=== PATIENT | female | born 1965 | race African-American/Black ===

== ENCOUNTER 2018-10-12 19:25 | Emergency (ER) | payer BC, OTHER ==
[~2018-10-12] VITALS: Ht 152.4 cm; Wt 77.6 kg
--- NOTE | 2018-10-12 19:41 | ED Upper Extremity ---
General Chief Complaint: Upper Extremity Stated Complaint: LT WRIST INJ, SWOLLEN, RED History of Present Illness Date Seen by Provider: Oct 12, 2018 Time Seen by Provider: 19:27 This is a 53-year-old female who complains of left wrist pain after a mechanical fall shortly prior to arrival. No weakness numbness or tingling. The pain is constant although mild at rest, worse with movement, nonradiating, sore , moderate severity at worst. Denies any other injuries. Allergies and Home Medications Home Medications Hydrocodone/Acetaminophen 1 Each Tablet, 1 TAB PO Q4-6HR PRN for PAIN-MODERATE TO SEVERE Prescribed by: NASIR ARTIS on 10/12/182012 Patient Home Medication List Home Medication List Reviewed: Yes Review of Systems Constitutional: no symptoms reported EENTM: no symptoms reported Respiratory: no symptoms reported Cardiovascular: no symptoms reported Gastrointestinal: no symptoms reported Genitourinary: no symptoms reported Musculoskeletal: see HPI Skin: no symptoms reported Psychiatric/Neurological: No Symptoms Reported Past Vkwtgyc-Rxiikt-Gtxtqe Hx Patient Social History Recent Foreign Travel: No (N) Contact w/Someone Who Travel: No Physical Exam Vital Signs Vital Signs - First Documented 10/12/18 10/12/18 19:30 20:55 Temp 97.2 Pulse 88 Resp 16 B/P (MAP) 152/91 (111) Pulse Ox 95 O2 Flow Rate 96.00 Capillary Refill : Height, Weight, BMI Height: '" Weight: lbs. oz. kg; BMI Method: General Appearance: no apparent distress HEENT: normal ENT inspection Neck: supple Cardiovascular: normal peripheral pulses, regular rate, rhythm Respiratory: lungs clear Gastrointestinal: non tender, soft Wrist: Yes swelling (there is mild swelling over the dorsal left wrist with some tenderness over the distal radius, there is also a small abrasion less than 1 cm over the palmar aspect of the distal second MCP without tenderness) Neurologic/Tendon: other (radial, median, ulnar nerve function intact) Neurologic/Psychiatric: alert, normal mood/affect, oriented x 3; No abnormal gait Skin: warm/dry Procedures/Interventions Splinting and Joint Reduction : Pre-Proc Neuro Vasc Exam: normal Post-Proc Neuro Vasc Exam: normal Dagoberto wrap: Yes Arm Sling: Large Hand-Made Type: plaster; sugar tong to left forearm Progress/Results/Core Measures Results/Orders My Orders Orders - NASIR ARTIS DO Wrist 2 View Left (10/12/18 19:34) Vital Signs/I&O 10/12/18 10/12/18 19:30 20:55 Temp 97.2 97.9 Pulse 88 84 Resp 16 16 B/P (MAP) 152/91 (111) 148/88 (108) Pulse Ox 95 96 O2 Flow Rate 96.00 Progress Progress Note : Progress Note I did not feel we would be able to significantly improve alignment with closed reduction in ED, indeed pt likely requires surgery as fx may be intraarticular. I applied sugar tong plaster splint and sling. Rx for norco PRN. F/u orthopedics bryanna, return precautions discussed. Departure Impression Primary Impression: Fracture of radius Disposition: HOME, SELF-CARE Condition: Stable Departure-Patient Inst. Referrals: NO,LOCAL PHYSICIAN (PCP) Primary Care Physician KACIE TREVIZO MD Patient Instructions: How to Use a Shoulder Sling, Radius Fracture (DC) Scripts Hydrocodone/Acetaminophen ([place] 5-325 Tablet) 1 Each Tablet 1 TAB PO Q4-6HR PRN for PAIN-MODERATE TO SEVERE MDD 10 for 4 Days, #18 TAB Prov: NASIR ARTIS DO 10/12/18 NASIR ARTIS DO Oct 12, 2018 19:41
--- NOTE | 2018-10-12 19:57 | Diagnostic Imaging Report ---
INDICATION: Fell and tried to catch herself. Left hand pain and wrist pain and swelling. EXAMINATION: Left wrist dated 10/12/2018. FINDINGS: Two views of the wrist demonstrate a fracture of the distal radius with the distal aspect displaced anteriorly on the lateral view. Questionable lucency extends into the adjacent joint space. No other fractures identified. No dislocations. There is diffuse soft tissue swelling. IMPRESSION: 1. Distal radial fracture as described possibly intra-articular. Dictated by: Dictated on workstation # [id number]
[2018-10-12] MEDS ORDERED: HYDR-4226 PO (20:13)
[2018-10-12 20:55] VITALS: BP 148/88
--- OUTSIDE RECORDS SUMMARY | 2018-10-12 21:00 | XMS REPORT ---
Author RICHARD Friedman [facility] eClinicalWorks Address Unknown Phone Unavailable Care Team Providers Care Plant Production Worker Name Role Phone RICHARD CROSS Unavailable Allergies, Adverse Reactions, Alerts Substance Reaction Event Type N.K.D.A. Info Not Available Non Drug Allergy Problems Problem Type Condition Code Onset Dates Condition Status Assessment Urinary frequency R35.0 Active Assessment Urinary urgency R39.15 Active Assessment Dysuria R30.0 Active Assessment Suprapubic pain R10.2 Active Medications Medication Code System Code Instructions Start Date End Date Status Dosage Bactrim DS [facility] [address]-45 800-160 MG Orally 2 times a day Jul 03, 2015 Jul 06, 2015 1 tablet Estradiol [facility] [address]-58 0.05 MG Transdermal 1 patch to skin Procedures Procedure Coding System Code Date URINE CULTURE/COLONY COUNT CPT-4 17364 Jul 03, 2015 Office Visit, New Pt., Level 3 CPT-4 45527 Jul 03, 2015 URINALYSIS, AUTO, W/O SCOPE CPT-4 83874 Jul 03, 2015 Vital Signs Date/Time: Jul 03, 2015 Temperature 97.3 F Weight 144.0 lbs Height 60 in BMI 28.12 Index Blood Pressure Diastolic 74 mmHg Blood Pressure Systolic 118 mmHg Cardiac Monitoring Heart Rate 72 bpm Results No Known Results Summary Purpose eClinicalWorks Submission
--- OUTSIDE RECORDS SUMMARY | 2018-10-12 21:00 | XMS REPORT ---
Author Author CLOTILDE ORTEGA Organization [facility] Address [address] [place] [address] Care Team Providers Care Thermodynamics Teacher Name Role Phone CLOTILDE ORTEGA Unavailable PROBLEMS Type Condition ICD9-CM Code AGO13-CY Code Onset Dates Condition Status SNOMED Code Problem Slow transit constipation K59.01 Active 25437658 ALLERGIES No Information ENCOUNTERS Encounter Location Date Diagnosis [place] [address] [address] Dec, [place] [address] [address] November, [place] [address] [address] November, Alopecia L65.9 [place] [address] [address] November, Alopecia L65.9 ; Slow transit constipation K59.01 and Dry skin L85.3 [place] [address] [address] [place] [id number] [place] [address] Aug, Bronchitis J40 and Rib pain on right side R07.81 [facility] [address] [place] [id number] [place] [phone] Jul, Encounter for drug screening Z02.83 [place] [address] [address] Jul, [place] [address] [address] Jul, Dysuria R30.0 ; Urinary frequency R35.0 ; Urinary urgency R39.15 and Suprapubic pain R10.2 IMMUNIZATIONS No Known Immunizations SOCIAL HISTORY Never Assessed REASON FOR VISIT Requests return call PLAN OF CARE VITAL SIGNS MEDICATIONS Unknown Medications RESULTS No Results PROCEDURES No Known procedures INSTRUCTIONS MEDICATIONS ADMINISTERED No Known Medications MEDICAL (GENERAL) HISTORY Type Description Date Surgical History hysterectomy - total 08/2010 Surgical History section
--- OUTSIDE RECORDS SUMMARY | 2018-10-12 21:00 | XMS REPORT ---
Author Author DEEPALI RODRIGUEZ [facility] Address [address] [place] [address] Care Team Providers Care Knockup Worker Name Role Phone DEEPALI RODRIGUEZ Unavailable PROBLEMS Type Condition ICD9-CM Code AOV91-BE Code Onset Dates Condition Status SNOMED Code Assessment Encounter for drug screening Z02.83 Jul, Active [id number] ALLERGIES Unknown Allergies SOCIAL HISTORY No smoking Hx information available PLAN OF CARE VITAL SIGNS MEDICATIONS Unknown Medications RESULTS No Results PROCEDURES Procedure Date Ordered Related Diagnosis Body Site DRUG SCREEN NON TLC DEVICES Jul 07, 2016 IMMUNIZATIONS No Known Immunizations
--- OUTSIDE RECORDS SUMMARY | 2018-10-12 21:00 | XMS REPORT ---
Author Author CLOTILDE ORTEGA Organization [facility] Address [address] [place] [address] Care Team Providers Care Head Of Marketing Name Role Phone CLOTILDE ORTEGA Unavailable PROBLEMS Type Condition ICD9-CM Code [id number]-ZV Code Onset Dates Condition Status SNOMED Code Problem Slow transit constipation K59.01 Active 53579936 ALLERGIES No Information ENCOUNTERS Encounter Location Date Diagnosis [place] [address] [address] Dec, [place] [address] [address] November, [place] [address] [address] November, Alopecia L65.9 [place] [address] [address] November, Alopecia L65.9 ; Slow transit constipation K59.01 and Dry skin L85.3 [place] [address] [address] [place] [id number] [place] [address] Aug, Bronchitis J40 and Rib pain on right side R07.81 [facility] [address] [place] [id number] [place] [address] Jul, Encounter for drug screening Z02.83 [place] [address] [address] Jul, [place] [address] [address] Jul, Dysuria R30.0 ; Urinary frequency R35.0 ; Urinary urgency R39.15 and Suprapubic pain R10.2 IMMUNIZATIONS No Known Immunizations SOCIAL HISTORY Never Assessed REASON FOR VISIT Requests return call PLAN OF CARE VITAL SIGNS MEDICATIONS Medication Instructions Dosage Frequency Start Date End Date Duration Status Estradiol 0.05 MG Transdermal once weekly 1 patch to skin 28 days Active RESULTS No Results PROCEDURES No Known procedures INSTRUCTIONS MEDICATIONS ADMINISTERED No Known Medications MEDICAL (GENERAL) HISTORY Type Description Date Surgical History hysterectomy - total 08/2010 Surgical History section
--- OUTSIDE RECORDS SUMMARY | 2018-10-12 21:00 | XMS REPORT ---
Author Author CLOTILDE ORTEGA Organization [facility] Address [address] [place] [address] Care Team Providers Care Human Services Case Manager Name Role Phone CLOTILDE ORTEGA Unavailable PROBLEMS Type Condition ICD9-CM Code ZWY16-IR Code Onset Dates Condition Status SNOMED Code Problem Slow transit constipation K59.01 Active 20205768 ALLERGIES No Known Allergies ENCOUNTERS Encounter Location Date Diagnosis [place] [address] [address] Dec, [place] [address] [address] November, [place] [address] [address] November, Alopecia L65.9 [place] [address] [address] November, Alopecia L65.9 ; Slow transit constipation K59.01 and Dry skin L85.3 [place] [address] [address] Aug, Bronchitis J40 and Rib pain on right side R07.81 [facility] [address] [place] [id number] [place] [phone] Jul, Encounter for drug screening Z02.83 [facility] [address] [address] Jul, [place] [address] [address] Jul, Dysuria R30.0 ; Urinary frequency R35.0 ; Urinary urgency R39.15 and Suprapubic pain R10.2 IMMUNIZATIONS No Known Immunizations SOCIAL HISTORY Never Assessed REASON FOR VISIT Establish Care WB-MA, Thyroid concerns PLAN OF CARE VITAL SIGNS Height 60 in 2017-12-20 Weight 163.7 lbs 2017-12-20 Temperature 97.2 degrees Fahrenheit 2017-12-20 Heart Rate 86 bpm 2017-12-20 Respiratory Rate 20 2017-12-20 Oximetry on room air:98 % 2017-12-20 BMI 31.97 kg/m2 2017-12-20 Blood pressure systolic 128 mmHg 2017-12-20 Blood pressure diastolic 84 mmHg 2017-12-20 MEDICATIONS Unknown Medications RESULTS No Results PROCEDURES Procedure Date Ordered Result Body Site COMPREHEN METABOLIC PANEL December 20, 2017 VENIPUNCT, ROUTINE* December 20, 2017 GONADOTROPIN (LH) December 20, 2017 ASSAY THYROID STIM HORMONE December 20, 2017 GONADOTROPIN (FSH) December 20, 2017 COMPLETE CBC W/AUTO DIFF WBC December 20, 2017 INSTRUCTIONS MEDICATIONS ADMINISTERED No Known Medications MEDICAL (GENERAL) HISTORY Type Description Date Surgical History hysterectomy - total 08/2010 Surgical History section
--- OUTSIDE RECORDS SUMMARY | 2018-10-12 21:00 | XMS REPORT ---
Author Author DEEPALI RODRIGUEZ [facility] Address [address] [place] [address] Care Team Providers Care Mill Recorder Name Role Phone DEEPALI RODRIGUEZ Unavailable PROBLEMS Unknown Problems ALLERGIES Unknown Allergies SOCIAL HISTORY No smoking Hx information available PLAN OF CARE VITAL SIGNS MEDICATIONS Unknown Medications RESULTS No Results PROCEDURES No Known procedures IMMUNIZATIONS No Known Immunizations
--- OUTSIDE RECORDS SUMMARY | 2018-10-12 21:00 | XMS REPORT ---
Author Author CLOTILDE ORTEGA Organization [facility] Address [address] [place] [address] Care Team Providers Care Mold Changer Name Role Phone CLOTILDE ORTEGA Unavailable PROBLEMS Type Condition ICD9-CM Code LGM08-UC Code Onset Dates Condition Status SNOMED Code Problem Slow transit constipation K59.01 Active 92616377 ALLERGIES No Information ENCOUNTERS Encounter Location Date Diagnosis [place] [address] [address] Dec, [place] [address] [address] November, [place] [address] [address] November, Alopecia L65.9 [place] [address] [address] November, Alopecia L65.9 ; Slow transit constipation K59.01 and Dry skin L85.3 [place] [address] [address] [place] [id number] [place] [address] Aug, Bronchitis J40 and Rib pain on right side R07.81 [facility] [address] [place] [id number] [place] [phone] Jul, Encounter for drug screening Z02.83 [place] [address] [address] Jul, [place] [address] [address] Jul, Dysuria R30.0 ; Urinary frequency R35.0 ; Urinary urgency R39.15 and Suprapubic pain R10.2 IMMUNIZATIONS No Known Immunizations SOCIAL HISTORY Never Assessed REASON FOR VISIT Refill request PLAN OF CARE VITAL SIGNS MEDICATIONS Medication [...]
--- OUTSIDE RECORDS SUMMARY | 2018-10-12 21:00 | XMS REPORT ---
Author Author MARIBEL LEÓN Organization [facility] Address [address] [place] [address] Care Team Providers Care Appellate Court Judge Name Role Phone MARIBEL LEÓN Unavailable PROBLEMS Type Condition ICD9-CM Code VUF18-ML Code Onset Dates Condition Status SNOMED Code Problem Slow transit constipation K59.01 Active 60213441 ALLERGIES No Known Allergies ENCOUNTERS Encounter Location Date Diagnosis [facility] [address] [address] November, [place] [address] [address] November, Alopecia L65.9 [facility] [address] [address] November, Alopecia L65.9 ; Slow transit constipation K59.01 and Dry skin L85.3 [place] [address] [address] Aug, Bronchitis J40 and Rib pain on right side R07.81 [facility] [address] [address] Jul, Encounter for drug screening Z02.83 [facility] [address] [place] [id number] [place] [address] Jul, [place] [address] [address] Jul, Dysuria R30.0 ; Urinary frequency R35.0 ; Urinary urgency R39.15 and Suprapubic pain R10.2 IMMUNIZATIONS No Known Immunizations SOCIAL HISTORY Never Assessed REASON FOR VISIT rib pain--tcuppettRn, Has had cough/congestion x 2 weeks. Continues with symptoms. Was seen at [facility] urgent care. Was given a steroid shot, antibiotics (still on antibiotics), and inhaler with no improvement. , -Is having right rib pain now due to cough PLAN OF CARE Activity Details Follow Up Discussed establishing care with Eliz Reason: VITAL SIGNS Height 60 in 2017-08-25 Weight 161.8 lbs 2017-08-25 Temperature 99.4 degrees Fahrenheit 2017-08-25 Heart Rate 76 bpm 2017-08-25 Respiratory Rate 20 2017-08-25 Oximetry 98 % 2017-08-25 BMI 31.60 kg/m2 2017-08-25 Blood pressure systolic 148 mmHg 2017-08-25 Blood pressure diastolic 50 mmHg 2017-08-25 MEDICATIONS Medication Instructions Dosage Frequency Start Date End Date Duration Status Naproxen 500 mg Orally every 12 hrs 1 tablet with food or milk as needed 12h Aug, Sep, 30 days Active Azithromycin 250 MG Orally Once a day 2 tablets on the first day, then 1 tablet daily for 4 days 24h Active Albuterol Sulfate HFA 108 (90 Base) MCG/ACT Inhalation every 6 hrs 2 puffs as needed 6h Active Estradiol 0.05 MG 1 patch to skin Not-Taking Tessalon Perles 100 mg Orally Three times a day 1 capsule as needed 8h Aug, Sep, 14 days Active RESULTS No Results PROCEDURES Procedure Date Ordered Result Body Site MEASURE BLOOD OXYGEN LEVEL Aug 25, 2017 INSTRUCTIONS MEDICATIONS ADMINISTERED No Known Medications MEDICAL (GENERAL) HISTORY Type Description Date Surgical History hysterectomy - total 08/2010 Surgical History section
== END 2018-10-12 20:55 | disposition home or self-care (01) ==
LOC: ER FS 19:27
DX: S52.572A Other intraarticular fracture of lower end of left radius, initial encounter for closed fracture (principal); W19.XXXA Unspecified fall, initial encounter
CPT/HCPCS: 29105; 73100

== ENCOUNTER → 2019-03-15 | Outpatient (CLI) | payer BC, OTHER ==
[~2019-03-15] MED LIST: HYDR-4226 PO
--- NOTE | 2019-03-15 16:09 | Diagnostic Imaging Report ---
Indication: Right breast lump. Correlation is made prior exam from 05/20/2018 and 01/11/2016. 2-D and 3-D bilateral diagnostic mammography was performed with CAD. BB marker is placed at the area of palpable abnormality in the upper-outer right breast. Breasts are heterogeneously dense, limiting the sensitivity of mammography. No mass or malignant appearing microtest calcifications are seen. The axillae are unremarkable. Impression: BI-RADS 0 No mammographic features suspicious for malignancy are identified. Even so, directed sonographic interrogation of the area of the palpable abnormality in the upper-outer right breast is recommended and will be performed today. ACR BI-RADS Category 0: Incomplete. (Needs additional imaging evaluation). Result letter will be mailed to the patient. Note: At least 10% of breast cancer is not imaged by mammography. Dictated by: Dictated on workstation # [id number]
--- NOTE | 2019-03-15 19:11 | Diagnostic Imaging Report ---
INDICATION: Palpable lump in right breast. COMPARISON: Correlation is made with diagnostic mammogram earlier the same day. EXAMINATION: Sonographic interrogation in the area of palpable abnormality was performed. FINDINGS: There is an area of heterogeneous increased echogenicity at the 12 o'clock location 5 cm from the nipple, corresponding to the top abnormality. This may represent fatty tissue. No well-formed mass is seen. No abnormal shadowing is detected. IMPRESSION: No discrete mass is seen. There is echogenic tissue at this location which may represent fatty tissue. Continued close clinical and self breast exam is recommended to confirm stability of the palpable abnormality. ACR BI-RADS Category 2: Benign findings. Result letter will be mailed to the patient. Note: At least 10% of breast cancer is not imaged by mammography. Dictated by: Dictated on workstation # [id number]
== END ==
LOC: RAD 13:10
PROVIDERS: ATTEND Obstetrics & Gynecology
DX: N63.10 Unspecified lump in the right breast, unspecified quadrant (principal)
CPT/HCPCS: 77066

== ENCOUNTER → 2020-01-18 | Outpatient (CLI) | payer BC ==
--- NOTE | 2020-01-18 17:14 | Diagnostic Imaging Report ---
INDICATION: Palpable lump right breast. Correlation is made with diagnostic mammogram earlier same day. Sonographic interrogation at the area of lump was performed. There is a simple appearing cyst at the 12:30 location of the right breast, 8 cm from the nipple, measuring 5 mm in diameter. Adjacent to this is an area of shadowing but no discrete mass is seen. No other abnormality is detected. IMPRESSION: BI-RADS Category 0. 1. Simple cyst at the 12:30 location. 2. There is a heterogeneous area of shadowing adjacent to the cyst at the 12:30 location right breast, 8 cm from the nipple. This is indeterminate but does correspond to the region of palpable abnormality. No abnormality mammographically is seen. Further evaluation with MRI would be recommended for further characterization. Dictated by: Dictated on workstation # [id number]
--- NOTE | 2020-01-18 18:56 | Diagnostic Imaging Report ---
INDICATION: Palpable lump in right breast. COMPARISON: Correlation is made with prior mammogram of 03/15/2019 and 05/20/2018. EXAMINATION: 2D and 3D unilateral right diagnostic mammography was performed with CAD. FINDINGS: Right breast remains heterogeneously dense, limiting the sensitivity of mammography. A BB marker was placed at the area of palpable abnormality in the upper outer right breast at mid depth. No discrete mass is identified apart from an intraparenchymal lymph node in the far posterior and outer right breast. No malignant appearing microcalcifications are seen. Right axilla is unremarkable. IMPRESSION: Stable right mammogram with no mammographic features suspicious for malignancy. Even so, directed sonographic interrogation of the area of palpable abnormality is recommended and will be performed today. Dictated by: Dictated on workstation # [id number]
== END ==
LOC: RAD 12:15
PROVIDERS: ATTEND Obstetrics & Gynecology
DX: N60.01 Solitary cyst of right breast (principal)
CPT/HCPCS: 76642; 77065; G0279

== ENCOUNTER → 2020-01-30 | Outpatient (CLI) | payer BC ==
[~2020-01-30] MED LIST changes: +GADOBUTROL 15 MMOL/15 ML (GADAVIST) VIAL IV ONE
[2020-01-30 08:36] LABS: ALBUMIN 4.3 GM/DL (3.2-4.5); CHLORIDE 107 MMOL/L (98-107); POTASSIUM 4.2 MMOL/L (3.6-5.0); SODIUM 143 MMOL/L (135-145)
[2020-01-30 08:37] LABS: CALCIUM 9.4 MG/DL (8.5-10.1)
[2020-01-30 08:38] LABS: GLUCOSE 89 MG/DL (70-105)
[2020-01-30 08:39] LABS: TOTAL PROTEIN 7.6 GM/DL (6.4-8.2)
[2020-01-30 08:40] LABS: CARBON DIOXIDE 27 MMOL/L (21-32)
[2020-01-30 08:41] LABS: BILIRUBIN,TOTAL 0.7 MG/DL (0.1-1.0)
[2020-01-30 08:42] LABS: ALKALINE PHOSPHATASE 109 U/L (40-136); CREATININE SERUM 0.87 MG/DL (0.60-1.30); GFR ESTIMATED > 60
[2020-01-30 08:43] LABS: BUN/CREATININE RATIO 10
[2020-01-30 08:45] LABS: ALANINE AMINOTRANSFERASE 15 U/L (0-55)
--- NOTE | 2020-01-30 18:16 | Diagnostic Imaging Report ---
EXAMINATION: MRI Breast w/ + w/o Contrast Bilateral CLINICAL INDICATION: Problem-solving MRI. Palpable right breast lump. Patient recently had diagnostic mammogram and ultrasound performed for further evaluation of this lump, with irregular finding demonstrated on ultrasound. TECHNIQUE: Utilizing a 1.5 Blanca Siemens magnet, the patient was placed in a prone position with an 8 channel dedicated breast coil utilized. Axial STIR and fat sat T2 precontrasted images and axial T1 with and without fat-sat images were obtained. Post contrast high-resolution dynamic images were also obtained. Pre and post contrasted images were then evaluated with MD2U for evaluation of possible angiogenesis. The patient was injected with 7 mL of Gadavist gadolinium contrast. COMPARISON: Recent diagnostic mammogram and ultrasound performed on 01/18/2020, as well as prior diagnostic mammogram and ultrasound performed on 03/15/2019 and additional prior mammograms performed in 2015 and 2018. FINDINGS: RIGHT BREAST: The breast is composed of heterogeneous fibroglandular tissue. There is marked background parenchymal enhancement. There are scattered cysts throughout the breast, many of which demonstrate peripheral enhancement, compatible with mild inflammatory change in the cyst wall. There is an area of fat necrosis in the superior central breast at 12-1 o'clock far posterior depth. Immediately lateral to this, also between 12 and 1 o'clock, 11 cm from the nipple, there is an irregular mass with spiculated margins which measures approximately 7 x 7 x 8 mm (images [id number] [id number] series 9). This demonstrates predominantly persistent-type enhancement on kinetic analysis. There is no other suspicious mass or non-mass enhancement above background. There is no axillary or internal mammary adenopathy. LEFT BREAST: The breast is composed of heterogeneous fibroglandular tissue. There is moderate to marked background parenchymal enhancement. There are scattered cysts, to a lesser degree than seen in the right breast, many of which demonstrate peripheral enhancement, compatible with mild inflammatory change in the cyst wall. There is no suspicious mass or non-mass enhancement above background. There is no axillary or internal mammary adenopathy. IMPRESSION: There is an irregular enhancing mass in the central superior breast at far posterior depth at approximately 12-1 o'clock which is immediately adjacent to a small focal area of fat necrosis. This corresponds to findings on recent mammogram/ultrasound and although could be related to prior trauma in this area given it is immediately adjacent to fat necrosis, this is concerning for malignancy. Ultrasound-guided biopsy is recommended as this finding was seen on prior ultrasound. No other findings in either breast to suggest malignancy. There is no axillary or internal mammary adenopathy in either breast. ACR BI-RADS Category 4: Suspicious RECOMMENDATIONS: Ultrasound-guided biopsy of right breast mass at 12-1 o'clock, immediately adjacent to focus of fat necrosis. Dictated by: Dictated on workstation # [id number]
== END ==
LOC: RAD 07:45
PROVIDERS: ATTEND Obstetrics & Gynecology
DX: N63.10 Unspecified lump in the right breast, unspecified quadrant (principal); R92.8 Other abnormal and inconclusive findings on diagnostic imaging of breast
CPT/HCPCS: 80053; C8908; 36415; 77049